=== PATIENT | female | born 1985 | race Caucasian/White ===

== ENCOUNTER 2022-02-20 03:47 | Emergency (ER) | payer OTHER, SELFPAY ==
[2022-02-20 03:52] VITALS: BP 121/66; PULSE 87; RESP 18; TEMP 36.8; O2SAT 98; BMI 23.1
--- NOTE | 2022-02-20 04:25 | ED_ITS ---
HPI - General Adult General Chief complaint: General Medical Stated complaint: Sinus Pain Time Seen by Provider: 02/20/22 04:21 Source: patient Mode of arrival: ambulatory Limitations: no limitations History of Present Illness HPI narrative: Patient comes to the emergency room complaining of sinus pain, nasal congestion, and a hole in the septum of her nose. Patient admits to be chronic heroin and user. Unknown how long the whole has been her nasal septum. Patient complaining of sinus pain, pressure, no fever chills Related Data Previous Rx's Medication Instructions Recorded doxycycline hyclate 100 mg capsule 100 mg PO BID #14 caps 02/20/22 fluticasone propionate 50 1 spray intranasal BID #16 grams 02/20/22 mcg/actuation nasal spray,suspension (Flonase Allergy Relief) Allergies Allergy/AdvReac Type Severity Reaction Status Date / Time No Known Allergies Allergy Verified 02/20/22 03:51 Review of Systems Review of Systems: Constitutional : No Weight loss, No Fever, No Chills, No Night Sweats, No Fatigue, No Malaise ENT/Mouth : No Hearing loss, No Ear Pain, complaining of nasal congestion and sinus pain, complaining of a hole in her nasal septum. No Hoarseness, No sore throat, No Rhinorrhea, No Swallowing Difficulty Eyes: No Eye Pain, No Swelling, No Redness, No Foreign Body, No Discharge, No Vision Changes Cardiovascular : No Chest Pain, No SOB, No Dyspnea on Exertion, No Orthopnea, No Edema, No Palpitations Respiratory : No Cough, No Sputum, No Wheezing, No Smoke Exposure, No Dyspnea Gastrointestinal : No Nausea, No Vomiting, No Diarrhea, No Constipation, No abdominal Pain, No Hematochezia, No Melena Genitourinary : no irregular bleeding, No Dysuria, No Urinary Frequency, No Hematuria, No Urinary Incontinence, No Urgency, No Flank Pain, No Urinary Flow Changes, No Hesitancy Musculoskeletal : No joint pain, No Myalgias, No Joint Swelling Skin : No Skin Lesions, No rash Neuro : No Weakness, No Numbness, No Paresthesias, No Loss of Consciousness, No Dizziness, No Headache Psych : No Anxiety/Panic, No Depression, No SI/HI/AH/VH, No Social Issues, Heme/Lymph: No Bruising, No Bleeding,No Lymphadenopathy Endocrine : No Polyuria, No Polydipsia, No Temperature Intolerance [facility] Past Medical History Medical History (Updated 02/20/22 @ 04:29 by Autumn Aragon MD) Cocaine abuse Social History Social History Advance Directives: No Advance Directives Information Provided: No Physical Exam ED Vital Signs: Vital Signs - 24 hr 02/20/22 03:52 Temperature 98.3 F Pulse Rate 87 Respiratory Rate 18 Blood Pressure 121/66 Pulse Oximetry 98 Oxygen Delivery Method Room Air BMI result Body Mass Index 23.1 Const Other: Appearance: Alert. Oriented X3. No acute distress. Eyes: Pupils equal, round and reactive to light. ENT: Pharynx normal. Pain to palpation over the ethmoid sinuses. There is a 0.5 cm communicating the right and left nostrils through the septum, chronic, no necrotic tissue, no bleeding Neck: Normal inspection. Neck supple. No lymph nodes noted. No crepitus CVS: Normal heart rate and rhythm. Pulses normal. Normal S1 and S2 Respiratory: No respiratory distress. Breath sounds normal. No Wheezing. No rales Abdomen: Soft and nontender. No rigidity. No distention. Skin: Skin warm and dry. Normal skin color. Normal skin turgor. Extremities: No lower extremity edema. No Lacerations. No Rash Neuro: Oriented X 3. No motor deficit. No sensory deficit. Moving all extremities. No slurred speech. CN 2 through 12 grossly intact Psych: calm, cooperative, normal affect Course Course Course Narrative: Patient very uncomfortable with the sinus pressure and pain. Given that she is a cocaine user, has a fairly new foramen communicating nostrils, we will go ahead and treat her with antibiotics. Discharge Plan Discharge Clinical Impression: Acute ethmoidal sinusitis Patient Disposition: Home, Self-Care Instructions: Sinusitis (ED) Additional Instructions: Please follow-up with your primary care physician tomorrow. If you have any worsening or new symptoms, please return to the emergency room or call 911 Prescriptions: New doxycycline hyclate 100 mg capsule 100 mg PO BID Qty: 14 0RF fluticasone propionate [Flonase Allergy Relief] 50 mcg/actuation spray,suspension 1 spray intranasal BID Qty: 16 0RF Rx Instructions: administer into each nostril
== END 2022-02-20 04:48 | disposition home or self-care (01) ==
PROVIDERS: Emergency Provider Emergency Medicine
DX: J01.20 Acute ethmoidal sinusitis, unspecified (principal); F14.10 Cocaine abuse, uncomplicated
CPT/HCPCS: 99283

== ENCOUNTER 2022-05-24 09:28 | Emergency (ER) | payer OTHER, SELFPAY ==
[2022-05-24 09:30] VITALS: BP 109/72; PULSE 79; RESP 18; TEMP 36.6; O2SAT 95; BMI 23.8
--- NOTE | 2022-05-24 10:28 | ED.URI ---
HPI - URI/Sore Throat General Chief Complaint: General Medical Stated Complaint: sinus pain Time Seen by Provider: 05/24/22 10:27 Source: patient Mode of arrival: ambulatory Limitations: no limitations History of Present Illness HPI Narrative: 36yoF c PMHx of snorting cocaine who is presenting to the ER with complaints of nasal congestion/rhinorrhea with sinus pressure pain for the past week after snorting cocaine. She reports she has a history of a hole in the septum on her nose from cocaine usage with is chronic and not new. She is unsure how long this whole has been in her septum. She denies any thoughts of SI/HI/auditory visualizations thoughts of self-injury. Reports she is not interested in detox. Denies any fevers, chills, dizziness or headaches, sore throat, trouble swallowing or breathing, chest pain or shortness of breath, rashes or any other symptoms complaints or concerns at this time. MD elicited complaint: rhinorrhea, nasal congestion and sinus pain Onset (ago): week(s) (1) Consistency: constant and progressively worsening Severity: moderate Description of mucous: clear, watery, yellow and green Able to tolerate fluids by mouth: Yes Exacerbating factors: nothing Relieving factors: nothing Context: other (Snorting cocaine) Associated symptoms: denies other symptoms Treatments prior to arrival: none Related Data Previous Rx's Medication Instructions Recorded doxycycline hyclate 100 mg capsule 100 mg PO BID #14 caps 02/20/22 fluticasone propionate 50 1 spray intranasal BID #16 grams 02/20/22 mcg/actuation nasal spray,suspension (Flonase Allergy Relief) doxycycline monohydrate 100 mg 100 mg PO BID 10 days #20 tabs 05/24/22 tablet fluticasone propionate 50 1 spray intranasal BID PRN nasal 05/24/22 mcg/actuation nasal congestion #16 grams spray,suspension Allergies Allergy/AdvReac Type Severity Reaction Status Date / Time No Known Allergies Allergy Verified 05/24/22 09:29 Review of Systems Review of Systems: Constitutional : No Weight loss, No Fever, No Chills, No Night Sweats, No Fatigue, No Malaise ENT/Mouth : No Hearing loss, No Ear Pain, + Nasal Congestion, + Sinus Pain, No Hoarseness, No sore throat, + Rhinorrhea, No Swallowing Difficulty Eyes: No Eye Pain, No Swelling, No Redness, No Foreign Body, No Discharge, No Vision Changes Cardiovascular : No Chest Pain, No SOB, No Dyspnea on Exertion, No Orthopnea, No Edema, No Palpitations Respiratory : No Cough, No Sputum, No Wheezing, No Smoke Exposure, No Dyspnea Gastrointestinal : No Nausea, No Vomiting, No Diarrhea, No Constipation, No abdominal Pain, No Hematochezia, No Melena Genitourinary : no irregular bleeding, No Dysuria, No Urinary Frequency, No Hematuria, No Urinary Incontinence, No Urgency, No Flank Pain, No Urinary Flow Changes, No Hesitancy Musculoskeletal : No joint pain, No Myalgias, No Joint Swelling Skin : No Skin Lesions, No rash Neuro : No Weakness, No Numbness, No Paresthesias, No Loss of Consciousness, No Dizziness, No Headache Psych : No Anxiety/Panic, No Depression, No SI/HI/AH/VH, No Social Issues, Heme/Lymph: No Bruising, No Bleeding,No Lymphadenopathy Endocrine : No Polyuria, No Polydipsia, No Temperature Intolerance Yes all other systems are reviewed and are negative [facility] Past Medical History Attestation statement: The following information was validated with the patient. Source: old records reviewed and nursing notes reviewed Medical History Cocaine abuse Physical Exam Vital Signs: Vital Signs: Last Vital Signs Temp 97.8 F 05/24/22 09:30 Pulse 79 05/24/22 09:30 Resp 18 05/24/22 09:30 BP 109/72 05/24/22 09:30 Pulse Ox 95 05/24/22 09:30 O2 Del Method 05/24/22 09:30 BMI result Body Mass Index 23.8 vital signs have been reviewed as normal and appeared to be correct. Blood pressure normal. Heart rate normal. Respiration rate normal. Temperature normal. Oxygen saturation normal. Appearance: Alert. Oriented X3. No acute distress. Head: Normal external exam. Normocephalic. Atraumatic. Eyes: PERRLA. EOMI. Conjunctiva and sclera normal. Eyelids normal. ENT: Pain to palpation over the sinuses. There is the 0.5 cm foramen communicating the right and left nostril through the septum, chronic, no necrotic tissue, no bleeding and no septal hematoma noted. Pharynx normal. Uvula midline. Moist mucous membranes. No lesions/ulcerations or masses noted on the tongue. Normal voice. No trismus noted. No drooling noted. No muffled voice noted. Neck: Normal inspection. Neck supple. FROM. No adenopathy. No meningeal signs. No neck mass noted. CVS: Normal heart rate and rhythm. Respiratory: No respiratory distress. Painless inspiration. Skin: Skin warm and dry. Normal skin color. Normal skin turgor. No rashes/lesions/lacerations noted. Extremities: Extremities exhibit normal range of motion and nontender. Neuro: Oriented X 3. No motor deficit. No sensory deficit. Reflexes normal. Normal steady gait. No focal neuro deficits noted. CN's II-XII intact bilaterally? Course Course Course Narrative: Patient most likely sinusitis. Chronic cocaine usage. Has a fairly new foramen communicating nostrils, we will go ahead and treat her with antibiotics. Along with instructions to follow-up with ear nose and throat and to return if any new or worsening symptoms. I did offer detox although patient reports she is not interested. She denies any SI/HI/auditory visualizations thoughts of self-injury. Explained patient to return if any new or worsening symptoms she understands agrees with this plan. MDM - URI/Sore Throat Medical Records Attestation: I reviewed the patient's medical records. Discharge Plan Discharge Clinical Impression: Sinusitis Patient Disposition: Home, Self-Care Instructions: Sinusitis (ED) Prescriptions: New doxycycline monohydrate 100 mg tablet 100 mg PO BID 10 Days Qty: 20 0RF fluticasone propionate 50 mcg/actuation spray,suspension 1 spray intranasal BID PRN (Reason: nasal congestion) Qty: 16 0RF Rx Instructions: administer into each nostril No Action doxycycline hyclate 100 mg capsule 100 mg PO BID Qty: 14 0RF fluticasone propionate [Flonase Allergy Relief] 50 mcg/actuation spray,suspension 1 spray intranasal BID Qty: 16 0RF Rx Instructions: administer into each nostril Referrals: Gael Dowling [Physician] - (call to make a follow up with ear nose and throat) Print Language: Arabic
--- OUTSIDE RECORDS SUMMARY | 2022-05-24 10:42 | XMS_ITS | Continuity of Care Document ---
:1985 Author Organization [facility] Address [address] [place] [id number]- Care Team Providers Name Role Phone Jessica Gaviria DO Primary Care Physician [facility]counter [facility] Date(s): 04/04/22 - 04/04/[address] [address]- Encounter Diagnosis Sore throat (Final) - 04/04/22 Discharge Disposition: A-D/C Home Attending Physician: Paolo Alvarenga MD Admitting Physician: Paolo Alvarenga MD Referring Physician: Not on Staff, Referring MD Allergies, Adverse Reactions, Alerts No Known Allergies Immunizations Given and Recorded Vaccine Date Status Refusal Reason tetanus/diphtheria/pertussis, acel(Tdap) 10/16/17 Given tetanus/diphtheria/pertussis, acel(Tdap) 08/04/13 Given influenza virus vaccine, inactivated 03/14/13 Given Hepatitis B Vaccine (old term) 04/24/01 Given Hepatitis B Vaccine (old term) 03/19/99 Given Hepatitis B Vaccine (old term) 04/18/90 Given tetanus-diphtheria toxoids (Td) 03/19/99 Given Measles/Mumps/Rubella Virus Vaccine 12/16/94 Given Measles/Mumps/Rubella Virus Vaccine 02/26/89 Given diphtheria-tetanus toxoids (DT) 05/02/93 Given diphtheria-tetanus toxoids (DT) 09/02/91 Given diphtheria-tetanus toxoids (DT) 09/09/89 Given diphtheria-tetanus toxoids (DT) 05/27/88 Given diphtheria-tetanus toxoids (DT) 03/25/88 Given Poliovirus Vaccine, Inactivated 05/02/93 Given Poliovirus Vaccine, Inactivated 08/19/91 Given Poliovirus Vaccine, Inactivated 09/09/89 Given Poliovirus Vaccine, Inactivated 05/27/88 Given Poliovirus Vaccine, Inactivated 03/25/88 Given Haemophilus B Conj Vaccine (oldterm) 09/09/89 Given Medications ondansetron 4 mg oral tablet, disintegrating 1 tablet = 4 mg, By Mouth, Every 8 hours, PRN Nausea & Vomiting, # 10 tablet, 0 Refills, Maintenance, 06/11/19 14:06:00 EST, Tablet, [id number], 159.5, cm, 03/01/18 15:12:00 EDT, Height, 54.3, kg, 05/19/19 20:06:00 EST, Dry Weight Start Date: 06/11/19 Status: Orderedpantoprazole 20 mg oral delayed release tablet 1 tablet = 20 mg, By Mouth, Daily, # 14 tablet, 0 Refills, Maintenance, 06/11/19 14:06:00 EST, EC Tablet, 159.5, cm, 03/01/18 15:12:00 EDT, Height, 54.3, kg, 05/19/19 20:06:00 EST, Dry Weight Start Date: 06/11/19 Stop Date: 06/25/19 Status: Ordered Problem List Condition Confirmation Course Effective Dates Status Health Stat us Informant Family hx of colon Confirmed Active cancer requiring screening colonoscopy Vital Signs Most recent to oldest 1 2 3 [Reference Range]: Height 157 cm 157 cm 157 cm (04/04/22 10:33 PM) (04/04/22 5:13 PM) (04/04/22 4:39 PM) Oxygen Saturation [94-100 95 % 98 % 99 % %] (04/04/22 10:33 PM) (04/04/22 8:15 PM) (04/04/22 4:39 PM) Pulse Rate [55-90 bpm] 67 bpm 63 bpm 80 bpm (04/04/22 10:33 PM) (04/04/22 8:15 PM) (04/04/22 4:39 PM) Blood Pressure 111/62 mm Hg 112/63 mm Hg 116/66 mm Hg [90-138/55-84 mm Hg] (04/04/22 10:33 PM) (04/04/22 8:15 PM) ( 4:39 PM) Respiratory Rate [16-30 16 br/min 20 br/min br/min] (04/04/22 10:33 PM) (04/04/22 4:39 PM) Temperature [96.8-100.4 98.3 DegF 98.7 DegF 98.3 Deg F DegF] (04/04/22 10:33 PM) (04/04/22 8:15 PM) (04/04/22 4:39 PM) Mode of Delivery (Oxygen) Room air Room air (04/04/22 10:33 PM) (04/04/22 4:39 PM) Blood pressure sites Arm, right Arm, left Arm, right (04/04/22 10:33 PM) (04/04/22 8:15 PM) (04/04/22 4:39 PM) Temperature Route Oral Oral Oral (04/04/22 10:33 PM) (04/04/22 8:15 PM) (04/04/22 4:39 PM) Dry Weight 59.1 kg 59.1 kg 59.1 kg (04/04/22 10:33 PM) (04/04/22 5:13 PM) (04/04/22 4:39 PM) Dry Weight Obtained Via Patient/family stated (04/04/22 4:39 PM) Social History Social History Type Response Smoking Status Current every day smoker entered on: 01/04/18 Sex Patient Care team information PersonnelName: Jessica Gaviria DO Address: Address: [address] [place], [place] [address]
--- OUTSIDE RECORDS SUMMARY | 2022-05-24 10:42 | XMS_ITS | Continuity of Care Document ---
:1985 Author Organization [facility] Address [address] [place] [address]- Care Team Providers Name Role Phone Jessica Gaviria DO Primary Care Physician [facility] Date(s): 03/21/22 - 04/20/22 [facility] [address]- [place] Allergies, Adverse Reactions, Alerts No Known Allergies [...] 0 Refills, Maintenance, 06/11/19 14:06:00 EST, Tablet, [id number], 159.5, cm, 03/01/18 15:12:00 EDT, Height, [...] colon Confirmed Active cancer requiring screening colonoscopy Social History Social History Type Response Smoking Status Current every day smoker entered on: 01/04/18 Sex Patient Care team information PersonnelName: Jessica Gaviria DO Address: Address: [address] [place] [address] Adult & Pediatric Medicine [place], [place] [address]
--- OUTSIDE RECORDS SUMMARY | 2022-05-24 10:42 | XMS_ITS | Continuity of Care Document ---
:1985 Author Organization [facility] Address [address] [place] [phone]- Care Team Providers Name Role Phone Jessica Gaviria DO Primary Care Physician [facility] Date(s): 06/09/19 - 06/11/[address] [address]- [facility] Encounter Diagnosis Vomiting (Final) - 06/09/19 Altered mental state (Final) - 06/09/19 Discharge Disposition: A-D/C Home Attending Physician: Arin Deluca MD Admitting Physician: Gilberto Toro MD Referring Physician: Not on Staff, Referring MD Allergies, Adverse Reactions, Alerts Substance Reaction Severity Status NKA Active Immunizations Given and Recorded Vaccine Date Status [...] Date: 06/25/19 Status: Ordered Problem List Condition Effective Dates Status Health Status Informant Family hx of colon cancer requiring Active screening colonoscopy(Confirmed) Results Orders for Microbiology Reports Name Date Wet Prep 06/09/19 Microbiology Reports TEST:Wet Prep STATUS:Auth (Verified) BODY SITE: SOURCE:VAGINA COLLECTED DATE/TIME:06/09/19 3:40 PMWet Prep SPECIMEN DESCRIPTION : VAGINAL SPECIMEN SPECIAL REQUESTS : NONE DIRECT EXAM : 3+ CLUE CELLS NO WBC'S SEEN NO YEAST OBSERVED NO TRICHOMONAS OBSERVED REPORT STATUS : FINAL 06/09/2019Radiology Reports Exam Date Time Procedure Performing Provider Status 06/09/19 12:55 PM Chest Portable Constanza Griffin; Auth ([facility] ed) Notes:(Chest Portable) Reason For Exam: Shortness of BreathRESULT: Chest Portable Chest Portable INDICATION/CLINICAL QUESTION: Shortness of breath. Nausea. Vomiting. TECHNIQUE: AP chest 1231 hours 06/09/2019. COMPARISON: 05/26/2016. FINDINGS: LINES AND TUBES: Absent. LUNGS AND PLEURA: RIGHT CHEST: The lung is clear and there is no effusion. LEFT CHEST: The lung is clear and there is no effusion. HEART AND MEDIASTINAL CONTOURS: No active disease in chest.. BONES AND SOFT TISSUES: No acute abnormality.. IMPRESSION: 1. No active disease in chest. WSN: [id number] Dictated By: Monster Perkins MD Dictated Date/Time: 06/09/19 12:57 p Reviewed By: Monster Perkins MD Signed By: Monster Perkins MD Signed Date/Time: 06/09/19 12:57 pm Transcribed By: JUVE Transcribed Date/Time: 06/09/19 12:56 pm Vital Signs Most recent to oldest 1 2 3 [Reference Range]: Weight 55.6 kg (06/09/19 11:47 PM) Oxygen Saturation [94-100 96 % 99 % 98 % %] (06/11/19 11:00 AM) (06/11/19 4:07 AM) (06/11/19 12:12 AM) Pulse Rate [55-90 bpm] 57 bpm 57 bpm 62 bpm (06/11/19 11:00 AM) (06/11/19 4:07 AM) (06/11/19 12:12 AM) Blood Pressure 110/53 mm Hg 100/50 mm Hg 104/48 mm Hg [90-138/55-84 mm Hg] (06/11/19 11:00 AM) (06/11/19 4:07 AM) ( 12:12 AM) Respiratory Rate [16-30 18 br/min 16 br/min 18 br/mi n br/min] (06/11/19 11:00 AM) (06/11/19 4:07 AM) (06/11/19 12:12 AM) Temperature [96.8-100.4 98.4 DegF 98.0 DegF 99.0 Deg F DegF] (06/11/19 11:00 AM) (06/11/19 4:07 AM) (06/11/19 12:12 AM) Mode of Delivery (Oxygen) Room air Room air Room a ir (06/11/19 11:00 AM) (06/11/19 4:07 AM) (06/11/19 12:12 AM) Blood pressure sites Arm, right Arm, right Arm, left (06/11/19 11:00 AM) (06/11/19 4:07 AM) (06/11/19 12:12 AM) Temperature Route Oral Oral Axillary (06/11/19 11:00 AM) (06/11/19 4:07 AM) (06/11/19 12:12 AM) Weight Obtained Via Bed scale (06/09/19 11:47 PM) Social History Social History Type Response Smoking Status Current every day smoker entered on: 01/04/18 Sex
--- OUTSIDE RECORDS SUMMARY | 2022-05-24 10:42 | XMS_ITS | Continuity of Care Document ---
:1985 Author Organization [facility] Address [address] [place] [phone]- Care Team Providers Name Role Phone Jessica Gaviria DO Primary Care Physician [facility] Date(s): 03/21/22 - 04/20/22 [facility] [place] [address]- [place] Allergies, Adverse Reactions, Alerts No Known [...] information PersonnelName: Jessica Gaviria DO Address: Address: [address] [place] [address] Adult & Pediatric Medicine [place], [place] [address]
--- OUTSIDE RECORDS SUMMARY | 2022-05-24 10:42 | XMS_ITS | Continuity of Care Document ---
:1985 Author Organization [facility] Address [address] [place] [address]- Care Team Providers Name Role Phone Jessica Gaviria DO Primary Care Physician [facility]counter [facility] Date(s): 03/26/22 - 04/25/22 [facility] [address]- [place] Allergies, Adverse Reactions, Alerts No Known [...] information PersonnelName: Jessica Gaviria DO Address: Address: [address] [place] [address] Adult & Pediatric Medicine [place], [place] [address]
== END 2022-05-24 11:21 | disposition home or self-care (01) ==
PROVIDERS: Emergency Provider Emergency Medicine
DX: J32.9 Chronic sinusitis, unspecified (principal); F14.10 Cocaine abuse, uncomplicated
CPT/HCPCS: 99282; 99283